=== PATIENT | female | born 1935 ===

== ENCOUNTER 2019-04-16 09:14 | Outpatient (CLI) | payer OTHER ==
[~2019-04-16] VITALS: Ht 160 cm; Wt 66.2 kg
[2019-04-16] MEDS ORDERED: PEPCID40 MG PO (10:55)
== END 2019-04-16 09:45 | disposition home or self-care (01) ==
LOC: OFIC 805 09:14
DX: J31.0 Chronic rhinitis (principal); R05 Cough; J37.0 Chronic laryngitis; K21.9 Gastro-esophageal reflux disease without esophagitis; H61.22 Impacted cerumen, left ear

== ENCOUNTER 2020-03-08 11:45 | Inpatient (IN) | payer OTHER ==
[~2020-03-08] VITALS: Ht 160 cm; Wt 68.0 kg
[~2020-03-08 11:45] MED LIST: PEPCID40 MG PO
[2020-03-08] MEDS ORDERED: SYNTHROID75 MCG PO (12:27)
[2020-03-08] MEDS ORDERED: COZAAR100 MG PO (12:27)
[2020-03-08] MEDS ORDERED: SINEMET 25-1001 EACH PO (12:28)
[2020-03-08] MEDS ORDERED: MIRAPEX PO (12:28)
[2020-03-08] MEDS ORDERED: TENORMIN50 M1 PO (12:28)
[2020-03-09] MEDS ORDERED: MIRAPEX0.125 MG PO (10:50)
== END 2020-03-18 23:57 | disposition expired | DRG 207 ==
LOC: ER 11:45 → MEDJ 19:03
PROVIDERS: ADMIT Internal Medicine Cardiovascular Disease; ATTEND Internal Medicine Cardiovascular Disease
PROC: 8E0ZXY6 Isolation (ICD-10-PCS; principal; 2020-03-09)
PROC: 5A1955Z Respiratory Ventilation, Greater than 96 Consecutive Hours (ICD-10-PCS; 2020-03-09)
PROC: 3E0F7SF Introduction of Other Gas into Respiratory Tract, Via Natural or Artificial Opening (ICD-10-PCS; 2020-03-09)
PROC: 0BH17EZ Insertion of Endotracheal Airway into Trachea, Via Natural or Artificial Opening (ICD-10-PCS; 2020-03-09)
PROC: 4A12X4Z Monitoring of Cardiac Electrical Activity, External Approach (ICD-10-PCS; 2020-03-09)
PROC: 0W9930Z Drainage of Right Pleural Cavity with Drainage Device, Percutaneous Approach (ICD-10-PCS; 2020-03-10)
PROC: 02HV33Z Insertion of Infusion Device into Superior Vena Cava, Percutaneous Approach (ICD-10-PCS; 2020-03-12)
PROC: 4A033R1 Measurement of Arterial Saturation, Peripheral, Percutaneous Approach (ICD-10-PCS; 2020-03-16)
DX: U07.1 COVID-19 (principal); J96.01 Acute respiratory failure with hypoxia; J12.89 Other viral pneumonia; J93.0 Spontaneous tension pneumothorax; I10 Essential (primary) hypertension; E03.9 Hypothyroidism, unspecified; G20 Parkinson's disease